=== PATIENT | female | born 1980 | race Caucasian/White ===

== ENCOUNTER 2022-11-15 07:24 | Outpatient (CLI) | payer OTHER, SELFPAY | END 2022-11-15 07:25 | disposition home or self-care (01) | LOC: NFLDREF 11-16 06:52 | PROVIDERS: PCP Physician Assistant Medical; Visit Provider Physician Assistant Medical | DX: Z00.00 Encounter for general adult medical examination without abnormal findings (principal); Z13.0 Encounter for screening for diseases of the blood and blood-forming organs and certain disorders involving the immune mechanism; Z13.1 Encounter for screening for diabetes mellitus; Z13.6 Encounter for screening for cardiovascular disorders | CPT/HCPCS: 80053; 80061; 84443 ==

== ENCOUNTER 2024-02-06 07:04 | Outpatient (CLI) | payer OTHER, SELFPAY ==
--- NOTE | 2024-02-06 07:15 | MR_ITS ---
[facility] [address] [facility] [address] Phone:?[phone] Fax:?[phone] Referring Physician Information: Stevan Olvera M.D. [address] [facility] [address] Phone:?[phone] Fax:?[phone] Patient:Maite Nye D.O.B:?1980 Sex:?Female Phone:?[phone] [facility] MRN:?[id number] Exam Date:?02/06/2024 EXAM: MRI of the RIGHT SHOULDER, without contrast CLINICAL: Right shoulder lump. Evaluate for tumor and rotator cuff tear. COMPARISONS: X-rays dated 02/03/2024. TECHNICAL: Multiplanar multisequence MRI of the right shoulder was obtained. SEDATION: None. CONTRAST: None. FINDINGS: Rotator cuff: Supraspinatus/Infraspinatus: There is mild tendinosis of the distal supraspinatus and infraspinatus tendons with mild partial interstitial/bursal surface tearing of the distal supraspinatus tendon on coronal series 4 image 15. There is mild thin linear partial interstitial insertional tearing of the distal infraspinatus tendon. No significant fatty atrophy of the muscle bellies. Teres minor: No tendinosis, tear or atrophy. Subscapularis: No tendinosis, tear or atrophy. Bursae: Subacromial-subdeltoid: Minimal bursal edema. Subcoracoid: No significant bursal fluid. Coracoacromial arch: Acromion morphology: Type II. No os acromiale. Acromiohumeral space: Within normal limits. Coracohumeral space: Within normal limits. Biceps tendon, long head: There is mild tendinosis/partial interstitial tearing of the intra-articular tendon as seen on sagittal series 8 images 14-16. No significant tendon displacement. Glenohumeral joint: Physiologic volume of joint fluid. Articular cartilage: No significant chondral loss. Capsule: No convincing evidence of capsular thickening or injury. Labrum: No discrete labral tear identified on this nonarthrogram exam. No perilabral cyst identified. Bones: No suspicious marrow signal alteration, fracture or dislocation. Acromioclavicular joint: No significant arthrosis or injury. Lipoma is present within the subcutaneous soft tissues adjacent to the acromion underlying the skin marker in the region of concern measuring approximately 36 x 15 x 33 mm in size as seen on axial series 301 image 12 and sagittal series 7 image 9. IMPRESSION: 1. Mild tendinosis and mild partial tearing of the distal supraspinatus and infraspinatus tendons. 2. Mild tendinosis/partial interstitial tearing of the intra-articular long head biceps tendon. 3. Lipoma involving the subcutaneous soft tissues adjacent to the acromion measuring up to 36 mm in size. 4. No additional internal derangement identified. JCZ Electronically signed on 02/06/2024 1:04:00 PM by Rafa Mcclelland D.O.
== END 2024-02-06 07:05 | disposition home or self-care (01) ==
LOC: MRI 07:04
PROVIDERS: PCP Physician Assistant Medical; Visit Provider Orthopaedic Surgery Sports Medicine
DX: D17.21 Benign lipomatous neoplasm of skin and subcutaneous tissue of right arm (principal); M75.101 Unspecified rotator cuff tear or rupture of right shoulder, not specified as traumatic; M75.111 Incomplete rotator cuff tear or rupture of right shoulder, not specified as traumatic
CPT/HCPCS: 73221

== ENCOUNTER 2024-03-15 08:37 | Day surgery (SDC) | payer OTHER, SELFPAY ==
[2024-03-15] VITALS (11 sets, daily range): BP systolic 110–126; BP diastolic 65–114; PULSE 60–75; RESP 16; TEMP 36.4–36.9; O2SAT 94–99; BMI 29.2
[2024-03-15] MEDS: SODIUM CHLORIDE 0.9 % (FLUSH) 10 ML SYRINGE IVF (09:00)
[2024-03-15] MEDS: LACTATED RINGERS 1000 ML 1,000 ML 100 ML IV (09:00)
[2024-03-15 09:14] LABS: Ur HCG Qualitative* Negative (Negative)
--- NOTE | 2024-03-15 09:49 | W.PM.H&PU ---
History & Physical Update History & Physical Update H&P Reviewed and patient assessed: No changes noted
[2024-03-15] MEDS: CEFAZOLIN 2 GM in 0.9 % SODIUM CHLORIDE Mini-bag 100 ML IVPB (09:59)
--- NOTE | 2024-03-15 10:18 | PM.ORPRC ---
Procedure Note Date of procedure: 03/15/24 Procedure: PREOPERATIVE DIAGNOSIS: 1. Right superior posterolateral shoulder benign mass 2. Right 3rd toe dorsal benign cyst, near DIP joint POSTOPERATIVE DIAGNOSIS: 1. Right superior posterolateral shoulder benign mass 2. Right 3rd toe dorsal benign cyst, near DIP joint PROCEDURE: 1. Right superior posterolateral shoulder benign mass open excision (35 x 25 x 10 mm) 2. Right 3rd toe dorsal benign cyst open excision SURGEON: Stevan Olvera MD. VACATION SALES ADVISOR: [CALOS Stearns] - Of note, an child care center assistant director was critical for this case to aid in patient positioning, tissue retraction, limb manipulation/positioning, and closure. ANESTHESIA: General LMA IMPLANTS: None TOURNIQUET: 15 minutes at 225 torr, calf tourniquet COMPLICATIONS: None evident INDICATIONS: The patient is a pleasant 43-year-old female who has experienced right superolateral shoulder benign growth that has increased in size recently. In addition, she has a right dorsal 2nd toe cyst that has been developing and growing in recent months. This is bothersome as it puts pressure when she wear shoes. Given the failure of nonoperative management, and how this affects daily life, surgery was recommended. DESCRIPTION OF PROCEDURE: Following a thorough discussion of risks, benefits, and alternatives consent was obtained and the operative extremity was marked. The patient was brought to the operating room and placed supine on the operating table. 1 g IV Ancef was administered within 1 hour incision preoperatively. Proper time-out was performed identifying proper patient, site, and procedure. Both operative extremities were prepped and draped in the appropriate sterile fashion using ChloraPrep. We began with the right shoulder procedure: An incision was made on the lateral aspect of the superior shoulder centered over the identified mass. Sharp incision through the skin, and blunt dissection through subcutaneous tissue allowed us to protect crossing neurologic structures. After identifying the mass and mobilizing it with Metzenbaum scissors bluntly circumferentially, the mass was readily removed without difficulty. It was superficial to the deltoid fascia. Minimal bleeding was encountered, but Bovie cautery was utilized for hemostasis. This mass was sent for permanent pathology. It measured 35 x 25 x 10 mm. Thorough irrigation normal saline was performed. Closure performed in layered fashion with 3-0 Vicryl for subcutaneous and 4-0 Monocryl for subcuticular closure. Glue and dressings were applied. We then turned our attention to the right 3rd toe: A calf tourniquet was inflated after exsanguination. A transverse incision was made overlying the 3rd toe D IP joint region centered over the cyst. The cyst was pierced sharply and a thick, clear, gelatinous fluid was expressed consistent with a ganglion cyst/mucous cyst type of structure. There was no actual cystic structure that could be sent for pathology. The margins of the cyst were debrided with a combination of 15 blade scalpel, rongeur, and curette. At this stage, the tourniquet was deflated and hemostasis achieved. Closure was performed with [4-O nylon]. Soft dressings were applied, and the patient was awoken/transferred to the recovery room in stable condition. PLAN: 1. Encourage elevation of the right foot. 2. Weightbear as tolerated right lower extremity. 3. Range of motion right shoulder as tolerated. 4. Ibuprofen, acetaminophen and/or oxycodone as needed for pain. 5. Follow up with PA visit in 12-16 days for wound check and suture removal right foot, as well as wound check right shoulder.
[2024-03-15] MEDS: NEOMYCIN/BACITRACIN/POLYMYXIN B 1 APPLIC TOPICAL (10:22)
[2024-03-15] MEDS: fentaNYL 100 MCG/2 ML inj 50 MCG IVP ×2 (10:40→10:48)
--- NOTE | 2024-03-15 10:42 | W.ANESCHARGE ---
Anesthesia Charges Start Date/Time Anesthesia Start Date: 03/15/24 Anesthesia Start Time: 09:37 Stop Date/Time Anesthesia Stop Date: 03/15/24 Anesthesia Stop Time: 10:36
--- NOTE | 2024-03-15 10:59 | W.ANESCHARGE ---
Anesthesia Charges Start Date/Time Anesthesia Start Date: 03/15/24 Anesthesia Start Time: 09:37 Stop Date/Time Anesthesia Stop Date: 03/15/24 Anesthesia Stop Time: 10:36
[2024-03-15] MEDS: OxyCODONE/APAP 5-325 TABLET PO (11:24)
== END 2024-03-15 11:44 | disposition home or self-care (01) ==
LOC: OR 08:38
PROVIDERS: Anesthesiology; PCP Physician Assistant Medical; Visit Provider Orthopaedic Surgery Sports Medicine
PROC: (CPT 23071; principal; 2024-03-15 10:00)
DX: D17.21 Benign lipomatous neoplasm of skin and subcutaneous tissue of right arm (principal); M67.471 Ganglion, right ankle and foot
CPT/HCPCS: 23071; 28092; 01610; 81025; 88304; A9270; J0690; J1100; J1630; J1885; J2250; J2405; J2704; J3010; J7120

== ENCOUNTER 2024-05-06 09:45 | Emergency (ER) | payer OTHER, SELFPAY ==
[2024-05-06] VITALS (8 sets, daily range): BP systolic 113–140; BP diastolic 76–91; PULSE 53–75; RESP 16; TEMP 37.1; O2SAT 99–100; BMI 27.4
--- NOTE | 2024-05-06 12:03 | ED_ITS ---
HPI - General Adult General Date Seen: 05/06/24 Chief complaint: Chest Pain Stated complaint: Palpitations, chest discomfort Time Seen by Provider: 05/06/24 12:03 History of Present Illness HPI narrative: 43-year-old female with a history of rheumatoid arthritis, panic attacks, anxiety, depression, endometriosis who presents to the ER today with symptoms primarily of palpitations. She has been having this off and on for the past several weeks, perhaps even intermittently for several months. She notes that her episodes have been occurring more frequently over recent weeks. She gets spells where she feels something a funny happening in her chest. Her heart will beat funny or possibly skipped beats or race. Sometimes she feels her pulse up into her neck. Sometimes it feels like something is falling in her chest. These will happen where she gets intermittent irregular heartbeats that can last up to 30 minutes per episode. They make her feel really weak. She is not really having ?chest pain?. The episodes can happen any time of the day but ten d to happen more often in the morning. They are not associated with exertion. No definite associated with position. Sometimes she gets a funny tingly feeling in her right leg when her heart is palpitating. No numbness in her left leg. No swelling in her legs. No headache. No arm numbness or weakness. No abdominal pain. No nausea or vomiting. She has no history of thyroid disorder. No leg swelling. No recent travel or immobilization. She has a family history of ?tachycardia? according to her mother. She does not know of any specific arrhythmia She has a history of anxiety and panic attacks but says these spells feel a bit different than her typical anxiety. Related Data Home Medications ?Medication ?Instructions ?Recorded ?Confirmed calcium carbonate 500 mg-vitamin 1 tab PO QDAY 10/14/22 05/06/24 D3 5 mcg (200 unit) tablet lorazepam 0.5 mg tablet 0.5 mg PO QDAY PRN 10/14/22 05/06/24 Previous Rx's ?Medication ?Instructions ?Recorded sertraline 100 mg tablet 150 mg (1.5 x 100 mg) PO DAILY 04/19/24 #135 tabs Allergies Allergy/AdvReac Type Severity Reaction Status Date / Time No Known Drug Allergies Allergy Verified 03/25/24 10:07 [facility] Medical History (Updated 05/06/24 @ 14:46 by George Donahue MD) Right carpal tunnel syndrome ?G56.01 - Carpal tunnel syndrome, right upper limb (ICD-10) De Quervain's tenosynovitis, right ?M65.4 - Radial styloid tenosynovitis [de Quervain] (ICD-10) Panic attacks ?F41.0 - Panic disorder [episodic paroxysmal anxiety] (ICD-10) Premenstrual syndrome ?N94.3 - Premenstrual tension syndrome (ICD-10) Allergic rhinitis ?J30.9 - Allergic rhinitis, unspecified (ICD-10) Rheumatoid arthritis ?M06.9 - Rheumatoid arthritis, unspecified (ICD-10) Depression ?F32.A - Depression, unspecified (ICD-10) LUIS (generalized anxiety disorder) ?F41.1 - Generalized anxiety disorder (ICD-10) Surgical History (Updated 03/25/24 @ 17:04 by Lincoln Grayson PA-C) H/O removal of cyst (03/15/24) ?Z98.890 - Other specified postprocedural states (ICD-10) H/O excision of mass (03/15/24) ?Z98.890 - Other specified postprocedural states (ICD-10) History of dilation and curettage ?Z98.890 - Other specified postprocedural states (ICD-10) History of breast augmentation ?Z98.82 - Breast implant status (ICD-10) Endometriosis ?N80.9 - Endometriosis, unspecified (ICD-10) Family History (Updated 03/10/24 @ 16:27 by Rebecca Reddy PA-C) Mother Thyroid disease A-fib Father Diabetes Myocardial infarction Brother Diabetes Paternal Grandfather Myocardial infarction Social History (Updated 02/03/24 @ 08:33 by Vicenta Tracey ~ [facility], 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 She has 2 teenage children, son and daughter. 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 Alert. Conversant. Non toxic. HENT: Head: Atraumatic. Nose: Nose normal. Mouth/Throat: Oral mucosa is clear and moist. no trismus. Pharynx normal Eyes: Conjunctivae normal. EOM normal. Pupils equal, round, and reactive to light. No scleral icterus. Neck: Normal range of motion. Neck supple. No tracheal deviation present. No JVD. No thyromegaly Cardiovascular: Normal rate, regular rhythm. No gallop. No friction rub. No murmur heard. Symmetric radial and PT artery pulses Pulmonary/Chest: Effort normal. No stridor. No respiratory distress. No wheezes. No rales. No rhonchi . No tenderness. Abdominal: Soft. No distension. No mass. No tenderness. No rebound. No guarding. Musculoskeletal: RUE: Normal range of motion. No tenderness. No deformity LUE: Normal range of motion. No tenderness. No deformity RLE: Normal range of motion. No edema. No tenderness. No deformity LLE: Normal range of motion. No edema. No tenderness. No deformity Neurological: Alert and oriented to person, place, and time. Normal strength. CN II-VII intact. No sensory deficit. GCS eye subscore is 4. GCS verbal subscore is 5. GCS motor subscore is 6. Normal coordination Skin: Skin is warm and dry. No rash noted. No pallor. Normal capillary refill. Psychiatric: Normal mood. Normal affect. Const: Vital Signs, click to edit/add: Vital Signs - 24 hr 05/06/24 09:58 05/06/24 14:00 05/06/24 14:01 Temperature 98.8 F Pulse Rate 57 L 57 L Pulse Rate [Pulse Oximeter] 75 Respiratory Rate 16 Blood Pressure 140/91 H Blood Pressure [Ri t Upper Arm] 132/80 Pulse Oximetry 100 99 99 Oxygen Delivery Me thod Room Air 05/06/24 14:02 05/06/24 14:15 Temperature Pulse Rate 55 L 53 L Pulse Rate [Pulse Oximeter] Respiratory Rate Blood Pressure 130/85 Blood Pressure [Ri ght Upper Arm] Pulse Oximetry 99 99 Oxygen Delivery Me thod Course Vital Signs Vital signs: Initial Vital Signs Temperature 98.8 F 05/06/24 09:58 Temperature Source Temporal Artery Scan 05/06/24 09:58 Pulse Rate 75 05/06/24 09:58 Pulse Strength 0+ Absent 05/06/24 09:58 Respiratory Rate 16 05/06/24 09:58 Blood Pressure 132/80 05/06/24 09:58 Blood Pressure Mean 97 05/06/24 09:58 Blood Pressure Position Sitting 05/06/24 09:58 Pulse Oximetry 100 05/06/24 09:58 Oxygen Delivery Method Room Air 05/06/24 09:58 Vital Signs Temperature 98.8 F 05/06/24 09:58 Pulse Rate 75 05/06/24 09:58 Respiratory Rate 16 05/06/24 09:58 Blood Pressure 132/80 05/06/24 09:58 Pulse Oximetry 100 05/06/24 09:58 Oxygen Delivery Method Room Air 05/06/24 09:58 Temperature 98.8 F 05/06/24 09:58 Pulse Rate 53 L 05/06/24 14:15 Respiratory Rate 16 05/06/24 09:58 Blood Pressure 130/85 05/06/24 14:02 Pulse Oximetry 99 05/06/24 14:15 Oxygen Delivery Method Room Air 05/06/24 09:58 Medical Decision Making MDM Narrative Medical decision making narrative: This patient presents for evaluation of palpitations. Initial ECG shows [] normal sinus rhythm and no dysrhythmogenic abnormality such as WPW, prolonged QT, Brugada syndrome, and no ischemia. child monitor while the patient here in the ER showed no dysrhythmia or ectopy. A broad differential diagnosis was considered including SVT, Atrial fibrillation, ventricular arrhythmia, thyroid disease, acute electrolyte abnormality, drugs/medications, caffeine intake or other stimulants, medication side effect, anemia, heart disease, PE, among others. Overall low risk for PE and is negative by PERC. The workup and exam here in ED shows not specific cause of the patient's palpitations, and no risks factors to warrant admission. Clinical judgement suggests that supportive outpatient management is indicated. recommend follow up with her PCP in the [facility] as soon as possible to arrange an outpatient Holter monitor.. Lab Data Labs: Lab Results 05/06/24 Range/Units 12:45 WBC 4.88 (4.50-11.00) K/uL RBC 4.56 (4.00-5.20) m/uL Hgb 12.2 (12.0-16.0) gm/dL Hct 36.7 (33.0-51.0) % MCV 81 (80-100) fL MCH 27 (26-34) pg MCHC 33 (32-36) gm/dL RDW Coeff of Jax 13.1 (11.5-15.5) % Plt Count 144 (140-440) K/uL Neut % (Auto) 58.2 (42.0-72.0) % Lymph % (Auto) 32.4 (20-44) % [place] % (Auto) 7.2 (0.0-11.0) % Eos % (Auto) 1.6 (0.0-7.0) % Baso % (Auto) 0.6 (0.0-3.0) % Neut # (Auto) 2.84 (1.7-7.0) K/uL Lymph # (Auto) 1.58 (0.90-2.90) K/uL [place] # (Auto) 0.40 (0.00-0.90) K/UL Eos # (Auto) 0.08 (0.00-0.50) K/uL Baso # (Auto) 0.03 (0.00-0.30) K/uL Abs Immat Gran (auto) 0.00 (0.00-0.30) K/uL Imm/Tot Granulo (auto) 0.0 % Sodium 135 (135-149) mmol/L Potassium 3.6 (3.6-5.1) mmol/L Chloride 103 (96-114) mmol/L Carbon Dioxide 21 (20-32) mmol/L Anion Gap 11 (7-15) mEq/L BUN 18 (5-24) mg/dL Creatinine 0.6 (0.5-1.5) mg/dL Estimated Creat Clear 114.34 Estimated GFR 115 ml/min Glucose 88 (60-115) mg/dL Calcium 8.7 (8.4-10.6) mg/dL Troponin I < 0.01 L (0.01-0.04) ng/mL TSH 1.830 (0.270-4.200) uIU/mL HCG, Qual Negative (Negative) Imaging Data Chest x-ray: Attestation: I have reviewed the pertinent imaging results. Radiologist's impression: Findings/Impression: Cardiovascular and mediastinum: Heart size and vasculature are normal in caliber and appearance. Mediastinum is within normal limits. Lungs and pleural spaces: Lungs are clear. No sign of infiltrate or mass. No sign of pleural effusion. No pneumothorax. Bones and soft tissues: No significant findings. ECG Data Attestation: I personally reviewed and interpreted this ECG as follows: Interpretation: Normal sinus rhythm Rate: 66 MS: 154 QRS axis: Normal axis. No pathologic Q-waves. ST segment/T wave: No ST segment elevation or depression. QTc: 40 98 No Brugada syndrome. No prolonged QT. No WPW. Discharge Plan Discharge Clinical Impression: Heart palpitations Patient Disposition: Home, Self-Care Condition: Stable Instructions: Heart Palpitations (DC) Additional Instructions: As we discussed, please follow-up with your doctor through the [facility] as soon as possible and ask your doctor to help arrange an outpatient heart monitor. If you have worsening symptoms such as worsening palpitations, palpitations that last more than half an hour, chest pain, trouble breathing, fainting spells, or any problems, please come back to the ER right away to recheck. Prescriptions: No Action lorazepam 0.5 mg tablet 0.5 mg PO QDAY PRN calcium carbonate-vitamin D3 500 mg-5 mcg (200 unit) tablet 1 tab PO QDAY sertraline 100 mg tablet 150 mg PO DAILY Qty: 135 1RF Follow Up/Referrals: Rebecca Reddy PA-C [Primary Care Provider] - Stand Alone Forms: Incident [employer] Info Instructions
--- NOTE | 2024-05-06 12:20 | CRLHL7_ITS ---
For Patients: As a result of the Century Cures Act, medical imaging exams and procedure reports are released immediately into your electronic medical record. You may view this report before your referring provider. If you have questions, please contact your health care provider. Indication: Palpitations and chest discomfort Technique: Chest 2 views Comparison: None Findings/Impression: Cardiovascular and mediastinum: Heart size and vasculature are normal in caliber and appearance. Mediastinum is within normal limits. Lungs and pleural spaces: Lungs are clear. No sign of infiltrate or mass. No sign of pleural effusion. No pneumothorax. Bones and soft tissues: No significant findings. Dictated by Toni Benjamin MD @ 05/06/2024 1:42:40 PM (Electronically Signed)
[2024-05-06 13:02] LABS: Basophils Absolute Auto 0.03 K/uL (0.00-0.30); Basophils Percent Auto 0.6 % (0.0-3.0); Eosinophils Absolute Auto 0.08 K/uL (0.00-0.50); Eosinophils Percent Auto 1.6 % (0.0-7.0); Hematocrit 36.7 % (33.0-51.0); Hemoglobin* 12.2 gm/dL (12.0-16.0); Lymphocytes Absolute Auto 1.58 K/uL (0.90-2.90); Lymphocytes Percent Auto 32.4 % (20-44); Mean Corpuscular HGB Conc 33 gm/dL (32-36); Mean Corpuscular Hemoglobin 27 pg (26-34); Mean Corpuscular Volume 81 fL (80-100); Monocytes Percent Auto 7.2 % (0.0-11.0); Neutrophils Absolute Auto 2.84 K/uL (1.7-7.0); Neutrophils Percent Auto 58.2 % (42.0-72.0); Platelet Count* 144 K/uL (140-440); RDW Coefficient of Variation % 13.1 % (11.5-15.5); Red Blood Count 4.56 m/uL (4.00-5.20); White Blood Count* 4.88 K/uL (4.50-11.00)
[2024-05-06 13:21] LABS: Chloride* 103 mmol/L (96-114); Potassium* 3.6 mmol/L (3.6-5.1); Sodium* 135 mmol/L (135-149)
[2024-05-06 13:24] LABS: Anion Gap 11 mEq/L (7-15); Carbon Dioxide* 21 mmol/L (20-32); Creatinine* 0.6 mg/dL (0.5-1.5); Est. Creatinine Clearance* 114.34; Estimated Glomerular Filt Rate 115 ml/min
[2024-05-06 13:25] LABS: Blood Urea Nitrogen* 18 mg/dL (5-24); Calcium* 8.7 mg/dL (8.4-10.6); Glucose* 88 mg/dL (60-115)
[2024-05-06 13:28] LABS: HCG Qualitative Serum* Negative (Negative)
[2024-05-06 13:44] LABS: Slide Review Reflex No
[2024-05-06 13:45] LABS: Troponin I* < 0.01 ng/mL (0.01-0.04)
== END 2024-05-06 14:57 | disposition home or self-care (01) ==
PROVIDERS: Emergency Provider Emergency Medicine; PCP Physician Assistant Medical
DX: R00.2 Palpitations (principal)
CPT/HCPCS: 36415; 71046; 80048; 84443; 84484; 84703; 85025; 99283; 99284

== ENCOUNTER 2024-07-14 14:47 | Outpatient (CLI) | payer OTHER, SELFPAY ==
--- OUTSIDE RECORDS SUMMARY | 2024-07-14 14:51 | XMS_ITS | Clinical Summary ---
Author Organization [facility] Address [place], [place] [address] Care Team Providers Care Faceter Name Role Phone None Primary Care Provider Unavailabl e Allergies No known active allergies Medications Medication Sig Dispensed Refills Start Date End Date Status sertraline (ZOLOFT) 100 mg tablet Take 150 mg by mouth once daily. 04/20/2024 Active cholecalciferol, vitamin D3, (VITAMIN D3 ORAL) Take by mouth. Act edilberto TRIPHASIL (28) ORAL TAB Take as directed on package. 3 months 1 year 10/19/2002 07/14/2024 Discontinued (*Patient states no longer taking) nitroglycerin (NITROSTAT) 0.4 mg sublingual tabletIndications: Preprocedural examination Place 2 Tablets (0.8 mg) under the tongue one time for 1 dose. 07/14/2024 07/14/2024 Discontinued (*Med complete/Reg imen complete/Lev el of care change) Active Problems Problem Noted Date Diagnosed Date RHINITIS - ALLERGIC 05/10/2003 BLEEDING, POSTCOITAL DERMATITIS NOS TOBACCO USE Encounters Date Type Department Care Team Description 07/14/2024 10:00 AM MACHINE WHITENER Ancillary Procedure [facility] [address] [facility] [address] [place] [address] Arrived 07/14/2024 9:20 AM MACHINE WHITENER Orders Only [facility] [address] [facility] [address] [place] [address] Lab 07/14/2024 Travel 07/08/2024 Orders Only [facility] [address] [place] [address] Eber Westbrook MD <No scans attached> 07/01/2024 3:00 PM MACHINE WHITENER Office Visit [facility] [address] [place] [address] Eber Westbrook MD Arrived 07/01/[address] [facility] [place] [address] Eber Westbrook MD Health Maintenance Update 06/04/2024 Orders Only [facility] [address] [place] [address] Rylee Mcbride 1 scan: (1-Ord) Zio Report from Last 3 Months Social History Tobacco Use Types Packs/Day Years Used Date Smoking Tobacco: Every Day Cigarettes Comments:Smoking History Pac ks/day: 0.5 Sex and Gender Information Value Date Recorded Sex Assigned at Not on file Gender Identity Not on file Sexual Orientation Not on file Obstetrics History Last Filed Vital Signs Vital Sign Reading Time Taken Comments Blood Pressure 123/56 07/29/2006 2:15 PM MACHINE WHITENER Pulse 60 07/29/2006 2:15 PM MACHINE WHITENER Temperature 36.3 C (97.3 F) 07/29/2006 1:00 PM MACHINE WHITENER Respiratory Rate 12 07/29/2006 2:15 PM MACHINE WHITENER Oxygen Saturation 100% 07/29/2006 2:15 PM MACHINE WHITENER Inhaled Oxygen Concentration - - Weight 59.9 kg (132 lb) 07/29/2006 10:59 AM MACHINE WHITENER Height 165.1 cm (5' 5) 07/29/2006 10:59 AM MACHINE WHITENER Body Mass Index 21.97 07/29/2006 10:59 AM MACHINE WHITENER Plan of Treatment Upcoming Encounters Date Type Department Care Team (Late st Contact Info) Description 07/14/2024 3:00 PM MACHINE WHITENER Ancillary Procedure [facility] [address] [place] [address] Health Maintenance Due Date Last Done Comments Tdap 1992 Depression screening for age 12+ 1993 HIV for age 15-65 1996 BMI (ht and wt on same day) for age 18+ 1999 Hepatitis C screening for age 18-79 1999 Tetanus booster 2001 COVID-19 vaccine series ( season) 2024 09/29/2020, 09/08/2020 Influenza for age 9-49 04/25/2024 Pap test for age 21-65 10/14/2025 , 10/14/2022, 10/19/2002, Additional history exists Pneumococcal series for age 6-64 Aged Out No longer eligible based on patient's age to complete this topic Procedures Procedure Name Priority Date/Time Associated Diagnosis Comments CT CARDIAC CORONARY ARTERIES DUAL READ Routine 07/14/2024 10:26 AM MACHINE WHITENER Atypical chest pain Procedure Note - Mickey Mayorga MD - 07/14/2024 10:26 AM CSTThis note is in progress. [facility] Cardiac CT Report Name: DELORIS LEIGH : Scan Date: Accession Number: [id number] Status: Final Electronically signed by Mickey Mayorga 11:03:47 VITALS HEIGHT: 65 in (165 cm) WEIGHT: 132 lbs (60 kgs) BSA: 1.66 m^2 BMI: 22 kg/m^2 BP: 123 / 56 mmHg HEART RHYTHM: Normal Sinus Rhythm FINAL IMPRESSION [place] Coronaries: 1. Normal epicardial coronary arteries without atherosclerosis. 2. Normal size thoracic aorta. STUDY QUALITY: Study quality is good. CAD-RADS: CAD-RADS Classification 0 (0% stenosis). DOMINANCE: Left dominant coronary artery system. LM: The LM is normal. LAD: The LAD is normal. D1: The first diagonal is normal. LCX: The LCx is normal. OM1: The first obtuse marginal is normal. LEFT PDA: The left PDA is normal. LEFT PLB: The left posterolateral branch is normal. RCA: The RCA is normal. OTHER FINDINGS: Aortic sinus maximum cusp-commissure: 31 x 31 x 29 mm. Ascending aorta maximum diameters: 29 x 29 mm. Descending thoracic aorta maximum diameters: 23 x 23 mm. Pericardium: No effusion. Left atrium: Normal contrast opacification. Atrial septum: No evidence of shunt. Pulmonary veins: Normal anatomy. SCAN INFO TEST TYPE: Coronary CT Angiography SCANNER SUPERVISOR POWER REACTOR: SIEMENS SCANNER MODEL: Metail DOSE REDUCTION ALGORITHM: Prospective/[id number] PHASE UNITS: % START PHASE: 65 % END PHASE: 75 % EKG GATED: Yes PRE-CONTRAST: No POST-CONTRAST: Yes 3D RECONSTRUCTION: Yes PACEMAKER DEVICE: No GENERAL CONTRAST AGENT CONTRAST AGENT USED?: Yes TYPE: Omnipaque 350 DOSE: 80 ml RATE: 6.5 ml/s ROUTE: IV ARM: Left BOLUS TECHNIQUE: Biphasic ADVERSE REACTION: No CREATININE DATE: CT CONTRAST REACTION: None CONTRAST/SALINE ADMINISTRATION: Blended CONTRAST TIMING: Bolus Tracking Method MEDICATION ADMINISTERED DURING SCAN TYPE: Nitroglycerin, sublingual, B-Blockers NITROGLYCERIN, TOTAL DOSE: 0.8 mg RADIATION DOSE KV: 90 SETUP PATIENT TYPE: Outpatient REASON(S) FOR SCAN: Chest pain, Other... OTHER, SPECIFY:: family hx ascvd, anxiety, zio showed SR withrare ectopy and SVT REFERRING PHYSICIAN: EBER WESTBROOK TECHNOLOGIST: Frannie Montes Patient Account [id number] ICD10 Codes R07.89 Report generated by Pre[employer], a product of [employer] CREATININE,ISTA T Routine 07/14/2024 9:26 AM MACHINE WHITENER Atypical chest pain URINE POCT Routine 07/14/2024 9:26 AM MACHINE WHITENER Preprocedural examination EXTENDED HOLTER Routine 06/04/2024 Palpitations HPV HIGH RISK Routine 10/14/2022 5:00 PM MACHINE WHITENER from Last 3 Months or Most Recently Relevant to Health Maintenance Results * URINE POCT (07/14/2024 9:26 AM MACHINE WHITENER) POC HCG URINE NEGATIVE NEGATIVE [facility] Special[facility] (Urgent Care) Urine URINE SPECIMEN / Unknown 07/14/2024 9:26 AM MACHINE WHITENER 07/14/2024 9:27 AM MACHINE WHITENER Eber Westbrook MD URINE Performing Organization Address City/[facility]/ZIP Co de Phone Number [facility] [address] [place] [address], [facility] Specialty (Urgent Care) [address] [place] [phone] * CREATININE,ISTAT (07/14/2024 9:26 AM MACHINE WHITENER) POCT,CREATININE , ISTAT 0.8 0.6 - 1.3 mg/dL [facility] Specialty (Urgent Care) Blood BLOOD SPECIMEN / Unknown 07/14/2024 9:26 AM MACHINE WHITENER 07/14/2024 9:27 AM MACHINE WHITENER Eber Westbrook MD CHEMISTRY Performing Organization Address City/[facility]/ZIP Co de Phone Number [facility] [address] [place], [place] [address] Specialty (Urgent Care) [address] [place] [address] * EXTENDED HOLTER (06/04/2024) Rebecca Reddy PA-C CARDIAC SERVICES ORD * HPV HIGH RISK (10/14/2022 5:00 PM MACHINE WHITENER) TYPE 16 Negative Negative 10/18/2022 11:14 AM MACHINE WHITENER [facility] TRAL LABORATORY TYPE 18 Negative Negative 10/18/2022 11:14 AM MACHINE WHITENER [facility] TRAL LABORATORY OTHER HIGH RISK TYPES Negative Negative 10/18/2022 11:14 AM MACHINE WHITENER [facility] Other (Cervical/Vagina l) 10/14/2022 5:00 PM MACHINE WHITENER 10/16/2022 9:20 AM MACHINE WHITENER Narrative [facility] - 10/18/2022 11:14 AM MACHINE WHITENER HPV types 16, 18, 31, 33, 35, 39, 45, 51, 52, 56, 58, 59, 66 and 68 DNA were undetectable or below the pre-set threshold. Methodology: Joan Sid 4800 HPV Test Rebecca Reddy PA-C MICROBIOLOGY [facility] [address] [place] [address], from Last 3 Months or Most Recently Relevant to Health Maintenance Care Teams Faceter Relationship Specialty Start Date End Date None . PCP - General 07/28/06
== END 2024-07-14 14:48 | disposition home or self-care (01) ==
LOC: RAD 14:48
PROVIDERS: PCP Physician Assistant Medical; Visit Provider Internal Medicine
DX: R07.89 Other chest pain (principal); R00.2 Palpitations
CPT/HCPCS: 93306

== ENCOUNTER 2024-07-20 13:11 | Outpatient (CLI) | payer OTHER, SELFPAY ==
--- OUTSIDE RECORDS SUMMARY | 2024-07-20 13:13 | XMS_ITS | Clinical Summary ---
Author Organization [employer] [facility] Address [place], [place] [address] Care Team Providers Care Independent Crop Consultant Name Role Phone None Primary Care Provider [...] Encounters Date Type Department Care Team Description [facility] [address] [place] [address] MEGHA Russell [address] Eber Westbrook MD Results 2024 Telephone [facility] Gabriella Sam [address] [place] [address] MEGHA Russell [address] Eber Westbrook MD Results 07/14/2024 3:00 PM HEALTH AND WELLNESS COORDINATOR Ancillary Procedure [facility] [address] [place] [address] 07/14/2024 10:00 AM HEALTH AND WELLNESS COORDINATOR Ancillary Procedure [facility] [address] [place] [address] 07/14/2024 9:20 AM HEALTH AND WELLNESS COORDINATOR Orders Only [facility] [address] [place] [address] Lab 07/14/2024 Travel 07/08/2024 Orders Only [facility] [address] [place] [address] Eber Westbrook MD <No scans attached> 07/01/2024 3:00 PM HEALTH AND WELLNESS COORDINATOR Office Visit [facility] [address] [place] [address] Eber Westbrook MD 07/01/2024 Telephone [facility] [address] [facility] [address] [place] [address] Eber Westbrook MD Health Maintenance Update 06/04/2024 Orders Only [facility] [address] [place] [address] Rylee Mcbride 1 scan: (1-Ord) Zio Report [...] Comments Blood Pressure 123/56 07/29/2006 2:15 PM HEALTH AND WELLNESS COORDINATOR Pulse 60 07/29/2006 2:15 PM HEALTH AND WELLNESS COORDINATOR Temperature 36.3 C (97.3 F) 07/29/2006 1:00 PM HEALTH AND WELLNESS COORDINATOR Respiratory Rate 12 07/29/2006 2:15 PM HEALTH AND WELLNESS COORDINATOR Oxygen Saturation 100% 07/29/2006 2:15 PM HEALTH AND WELLNESS COORDINATOR Inhaled Oxygen Concentration - - Weight 59.9 kg (132 lb) 07/29/2006 10:59 AM HEALTH AND WELLNESS COORDINATOR Height 165.1 cm (5' 5) 07/29/2006 10:59 AM HEALTH AND WELLNESS COORDINATOR Body Mass Index 21.97 07/29/2006 10:59 AM HEALTH AND WELLNESS COORDINATOR Plan of Treatment Health Maintenance Due Date Last Done Comments [...] Procedure Name Priority Date/Time Associated Diagnosis Comments ECHO TTE COMPLETE WO CONTRAST Routine 07/14/2024 3:34 PM HEALTH AND WELLNESS COORDINATOR Atypical chest pain CT CARDIAC CORONARY ARTERIES DUAL READ Routine 07/14/2024 10:26 AM HEALTH AND WELLNESS COORDINATOR Atypical chest pain CREATININE,ISTAT Routine 07/14/2024 9:26 AM HEALTH AND WELLNESS COORDINATOR Atypical chest pain URINE POCT Routine 07/14/2024 9:26 AM HEALTH AND WELLNESS COORDINATOR Preprocedural examination EXTENDED HOLTER Routine 06/04/2024 Palpitations HPV HIGH RISK Routine 10/14/2022 5:00 PM HEALTH AND WELLNESS COORDINATOR from Last 3 Months or Most Recently Relevant to Health Maintenance Results * ECHO TTE COMPLETE WO CONTRAST (07/14/2024 3:34 PM HEALTH AND WELLNESS COORDINATOR) AORTIC VALVE MEAN PG 4 mmHg EJECTION FRACTION 62 % LVEDD 4.4 cm EJECTION FRACTION 60 - 65% Anatomical Region Laterality Modality Ultrasound 07/14/2024 3:01 PM HEALTH AND WELLNESS COORDINATOR Narrative 07/14/2024 3:56 PM HEALTH AND WELLNESS COORDINATOR ECHOCARDIOGRAM DELORIS LEIGH : 1980 43 years Study Date: 07/14/2024 3:01:11 PM Gender: F BP: 134/85 mmHg Height: 0.00 cm BSA: 0.00 m Weight: 0.00 kg Tech: ANNA Referring MD: EBER WESTBROOK Site: [facility] Reading Location: Mobile OP Patient Location: Outpatient. Procedure: 2D, Color Doppler and Spectral Doppler. Indication for study: Chest pain Cardiac Rhythm: Sinus bradycardia.Study quality: Good. Final Impressions: 1. Normal LV size, normal wall thickness, normal global systolic function with an estimated EF of 60 - 65%. 2. Right ventricular cavity size is normal, global systolic RV function is normal. 3. Normal diastolic function. 4. Color Doppler suggests a possible PFO. 5. No significant valve disease detected. Chamber Sizes and Function Normal left ventricular size, normal wall thickness, normal global systolic function with an estimated EF of 60 - 65%. No resting regional wall motion abnormality visualized. Left atrial size is normal. Right ventricular cavity size is normal, global systolic RV function is normal. The right atrium is normal. Right atrial area is 14 cm . The pulmonary artery is of normal size and origin. The sinus of Valsalva is normal sized. The ascending aorta is normal sized. Valves, RV Pressures and Diastolic Function The aortic valve is trileaflet, no stenosis and no regurgitation. The mitral valve is normal in structure, trace mitral regurgitation. Normal diastolic function. The tricuspid valve is normal in structure. Tricuspid regurgitation is trace regurgitation. The pulmonic valve is normal. Trace pulmonary regurgitation. TTE images do not appear adequate for transcather intervention with patient supine. Masses, Effusion, Shunts There is no pericardial effusion. The inferior vena cava is normal sized, respiratory size variation greater than 50%. Color flow Doppler imaging suggests a possible PFO. MEASUREMENTS AND CALCULATIONS 2-D Measurements and LV Function: LVID (d) 4.4 cm LV FS% (2D) 36 % LVID (s) 2.8 cm LVOT diameter 2.0 cm IVS (d) 1.0 cm HR 54 bpm LVPW (d) 1.0 cm RA area 14 cm Ao Sinus 3.0 cm RV Max 4C (d) 3.5 cm Asc Ao 3.3 cm Diastology: Mitral Tissue Doppler E Peak 1.0 m/s e', Septum 0.11 m/s A Peak 0.6 m/s e', Lateral 0.15 m/s E/A 1.7 E/e' Average 7.66 DT 193 msec Aortic Valve: Vmax 1.5 m/s PEPE (V) 1.56 cm VTI 0.38 m PEPE (I) 1.70 cm LVOT V max 0.7 m/s Max PG 9 mmHg LVOT VTI 0.20 m Mean PG 4 mmHg SV 65 ml Dim Index 0.52 CO 3.5 l/min Mitral Valve: MVA 3.9 cm MV P 1/2 56 msec Tricuspid Valve and estimated PA pressures: TAPSE 2.7 cm . This study was interpreted by an [facility] accredited facility. CC: Med/Surg - IP [facility]. Final Procedure Note Osmany Woodard MD - 07/14/2024 ECHOCARDIOGRAM DELORIS LEIGH : 1980 43 years Study Date: 07/14/2024 3:01:11 PM Gender: F BP: 134/85 mmHg Height: 0.00 cm BSA: 0.00 m Weight: 0.00 kg Tech: [facility] Referring MD: EBER WESTBROOK Site: [facility] Reading Location: Mobile OP Patient Location: Outpatient. Procedure: 2D, Color Doppler and Spectral Doppler. Indication for study: Chest pain Cardiac Rhythm: Sinus bradycardia.Study quality: Good. Final Impressions: 1. Normal LV size, normal wall thickness, normal global systolic functionwith an estimated EF of 60 - 65%. 2. Right ventricular cavity size is normal, global systolic RV functionis normal. 3. Normal diastolic function. 4. Color Doppler suggests a possible PFO. 5. No significant valve disease detected. Chamber Sizes and Function Normal left ventricular size, normal wall thickness, normal globalsystolic function with an estimated EF of 60 - 65%. No resting regionalwall motion abnormality visualized. Left atrial size is normal. Rightventricular cavity size is normal, global systolic RV function is normal.The right atrium is normal. Right atrial area is 14 cm . The pulmonaryartery is of normal size and origin. The sinus of Valsalva is normalsized. The ascending aorta is normal sized. Valves, RV Pressures and Diastolic Function The aortic valve is trileaflet, no stenosis and no regurgitation. Themitral valve is normal in structure, trace mitral regurgitation. Normaldiastolic function. The tricuspid valve is normal in structure. Tricuspidregurgitation is trace regurgitation. The pulmonic valve is normal. Tracepulmonary regurgitation. TTE images do not appear adequate for transcatherintervention with patient supine. Masses, Effusion, Shunts There is no pericardial effusion. The inferior vena cava is normal sized,respiratory size variation greater than 50%. Color flow Doppler imagingsuggests a possible PFO. MEASUREMENTS AND CALCULATIONS 2-D Measurements and LV Function: LVID (d) 4.4 cm LV FS% (2D) 36 % LVID (s) 2.8 cm LVOT diameter 2.0 cm IVS (d) 1.0 cm HR 54 bpm LVPW (d) 1.0 cm RA area 14 cm Ao Sinus 3.0 cm RV Max 4C (d) 3.5 cm Asc Ao 3.3 cm Diastology: Mitral Tissue Doppler E Peak 1.0 m/s e', Septum 0.11 m/s A Peak 0.6 m/s e', Lateral 0.15 m/s E/A 1.7 E/e' Average 7.66 DT 193 msec Aortic Valve: Vmax 1.5 m/s PEPE (V) 1.56 cm VTI 0.38 m PEPE (I) 1.70 cm LVOT V max 0.7 m/s Max PG 9 mmHg LVOT VTI 0.20 m Mean PG 4 mmHg SV 65 ml Dim Index 0.52 CO 3.5 l/min Mitral Valve: MVA 3.9 cm MV P 1/2 56 msec Tricuspid Valve and estimated PA pressures: TAPSE 2.7 cm . This study was interpreted by an [facility] accredited facility. CC: Med/Surg - IP [facility]. Final Eber Westbrook MD ECHO ORD * CT CARDIAC CORONARY ARTERIES DUAL READ (07/14/2024 10:26 AM HEALTH AND WELLNESS COORDINATOR) Anatomical Region Laterality Modality HEART Computed Tomogra phy 07/14/2024 10:0 6 AM HEALTH AND WELLNESS COORDINATOR Impressions 07/16/2024 8:03 AM HEALTH AND WELLNESS COORDINATOR 1. No acute nonvascular findings in the visualized chest. 2. Please refer to separately dictated report for evaluation of cardiovascular structures. Please note that all CT scans at this facility use dose modulation, iterative reconstruction, and/or weight-based dosing when appropriate to reduce radiation dose to as low as reasonably achievable. Dictated by Hiram Burroughs MD @ 07/14/2024 6:02:48 PM Narrative 07/16/2024 8:03 AM HEALTH AND WELLNESS COORDINATOR [facility] Cardiac CT Report Name: DELORIS LEIGH : Scan Date: Accession Number: [id number] Status: Final Electronically signed by Mickey Mayorga 11:03:47 VITALS HEIGHT: 65 in (165 cm) WEIGHT: 132 lbs (60 kgs) BSA: 1.66 m^2 BMI: 22 kg/m^2 BP: 123 / 56 mmHg HEART RHYTHM: Normal Sinus Rhythm FINAL IMPRESSION 1. Normal epicardial coronary arteries without atherosclerosis. [...] INFO TEST TYPE: Coronary CT Angiography SCANNER NEUROSURGEON: SIEMENS SCANNER MODEL: [employer] DOSE REDUCTION ALGORITHM: Prospective/[id number] PHASE UNITS: % START PHASE: 65 % [...] family hx ascvd, anxiety, zio showed SR with rare ectopy and SVT REFERRING PHYSICIAN: EBER WESTBROOK TECHNOLOGIST: Frannie Montes Patient Account [id number] ICD10 Codes R07.89 Report generated by [employer], a product of [employer] For Patients: As a result of the Century Cures Act, medical imaging exams and procedure reports are released immediately into your electronic medical record. You may view this report before your referring provider. If you have questions, please contact your health care provider. OVER-READ OVER-READ OVER-READ OVER-READ: DETAILED RADIOLOGY EXTRACARDIAC OVER-READ OF CARDIAC CT 05/31/2024 TECHNIQUE: Please see cardiology report for technical information. 84 cc Omnipaque 350. This exam is being performed in conjunction with the services provided by the [facility] ([facility]). CLINICAL HISTORY: Atypical chest pain cardiac over-read. FINDINGS: Visualized Chest: Bibasilar dependent atelectatic changes. No focal airspace opacities or pleural effusions. No significant mediastinal lymphadenopathy. No acute findings in the visualized upper abdomen. Degenerative changes in the spine. Eber Westbrook MD CT * URINE POCT (07/14/2024 9:26 AM HEALTH AND WELLNESS COORDINATOR) Pathologist [facility] POC HCG URINE NEGATIVE NEGATIVE [facility] Specialty (Urgent Care) Urine URINE SPECIMEN / Unknown 07/14/2024 9:26 AM HEALTH AND WELLNESS COORDINATOR 07/14/2024 9:27 AM HEALTH AND WELLNESS COORDINATOR Eber Westbrook MD URINE [facility] [address] [place] [address], [facility] Specialty (Urgent Care) [address] [place] [address] * CREATININE,ISTAT (07/14/2024 9:26 AM HEALTH AND WELLNESS COORDINATOR) [facility] POCT,CREATININE , ISTAT 0.8 0.6 - 1.3 mg/dL [facility] Specialty (Urgent Care) Blood BLOOD SPECIMEN / Unknown 07/14/2024 9:26 AM HEALTH AND WELLNESS COORDINATOR 07/14/2024 9:27 AM HEALTH AND WELLNESS COORDINATOR Eber Westbrook MD CHEMISTRY [facility] [address] [place] [address], [facility] Specialty (Urgent Care) [address] [place] [address] * EXTENDED HOLTER (06/04/2024) Rebecca Reddy PA-C CARDIAC SERVICES ORD * HPV HIGH RISK (10/14/2022 5:00 PM HEALTH AND WELLNESS COORDINATOR) TYPE 16 Negative Negative 10/18/2022 11:14 AM HEALTH AND WELLNESS COORDINATOR [facility] TR[facility]AT[facility] TYPE 18 Negative Negative 10/18/2022 11:14 AM HEALTH AND WELLNESS COORDINATOR [facility] OTHER HIGH RISK TYPES Negative Negative 10/18/2022 11:14 AM HEALTH AND WELLNESS COORDINATOR [facility] Other (Cervical/Vagina l) 10/14/2022 5:00 PM HEALTH AND WELLNESS COORDINATOR 10/16/2022 9:20 AM HEALTH AND WELLNESS COORDINATOR Narrative [facility] - 10/18/2022 11:14 AM HEALTH AND WELLNESS COORDINATOR HPV types 16, 18, 31, 33, 35, 39, 45, 51, 52, 56, 58, 59, 66 and 68 DNA were undetectable or below the pre-set threshold. Methodology: Joan Sid 4800 HPV Test Rebecca Reddy PA-C MICROBIOLOGY Performing Organization Address City/[facility]/ZIP Co de Phone Number [facility] [address] [place] [address], from Last 3 Months or Most Recently Relevant to Health Maintenance Care Teams Independent Crop Consultant Relationship Specialty Start Date End Date None . PCP - General 07/28/06
--- NOTE | 2024-07-20 13:20 | CRLHL7_ITS ---
For Patients: As a result of the Century Cures Act, medical imaging exams and procedure reports are released immediately into your electronic medical record. You may view this report before your referring provider. If you have questions, please contact your health care provider. BILATERAL SCREENING MAMMOGRAM WITH COMPUTER-AIDED DETECTION AND TOMOSYNTHESIS TECHNIQUE: CC, MLO and Implant displaced views were obtained. These mammographic images have been obtained using full-field digital technique. These mammographic images were interpreted with the benefit of computer-aided detection. Breast Tomosynthesis was used in this interpretation. COMPARISON FILM: 01/02/23. FINDINGS: The breasts are heterogeneously dense, which may obscure small masses. IMPRESSION: There is no radiographic evidence for malignancy. ASSESSMENT: BI-RADS Category 1: Negative RECOMMENDATION: Routine screening mammogram in 1 year. A lay language report of this examination will be provided to the patient. Girish Carr M.D. Diagnostic Radiologist [employer] [facility] [email or web address] SP/Dictated by: Girish Carr MD @ 07/21/2024 8:57:00 AM (Electronically Signed)
== END 2024-07-20 13:12 | disposition home or self-care (01) ==
LOC: MAMMO 13:12
PROVIDERS: PCP Physician Assistant Medical; Visit Provider Physician Assistant Medical
DX: Z12.31 Encounter for screening mammogram for malignant neoplasm of breast (principal); R92.333 Mammographic heterogeneous density, bilateral breasts; Z98.82 Breast implant status
CPT/HCPCS: 77063; 77067

== ENCOUNTER 2024-07-28 11:43 | Day surgery (SDC) | payer OTHER, SELFPAY ==
[2024-07-28] VITALS (11 sets, daily range): BP systolic 124–149; BP diastolic 76–90; PULSE 52–68; RESP 16; TEMP 36.5–36.8; O2SAT 95–100; BMI 28.3
--- OUTSIDE RECORDS SUMMARY | 2024-07-28 11:47 | XMS_ITS | Clinical Summary ---
Author Organization [email or web address] [facility] Address [place], [place] [address] Care Team Providers Care Group Activities Aide Name Role Phone Rebecca Reddy PA-C Primary Care Provider Allergies No known active allergies Medications Medication [...] Type Department Care Team Description 07/16/2024 Telephone [facility] [address] [place] [address] MEGHA Russell [id number] Eber Westbrook MD Results 2024 Telephone [facility] [address] [place] [address] MEGHA Russell [address] Eber Westbrook MD Results 07/14/2024 3:00 PM REGISTERED ART THERAPIST Ancillary Procedure [facility] [address] [place] [address] 07/14/2024 10:00 AM REGISTERED ART THERAPIST Ancillary Procedure [facility] [address] [place] [address] 07/14/2024 9:20 AM REGISTERED ART THERAPIST Orders Only [facility] [address] [place] [address] Lab 07/14/2024 Travel 07/08/2024 Orders Only [facility] [address] [place] [address] Eber Westbrook MD <No scans attached> 07/01/2024 3:00 PM REGISTERED ART THERAPIST Office Visit [facility] [address] [place] [address] Eber Westbrook MD 07/01/[address] [place] [address] Eber Westbrook MD Health Maintenance Update 06/04/[address] [facility] [address] [place] [address] Rylee Mcbride 1 scan: (1-Ord) Zio Report [...] Comments Blood Pressure 123/56 07/29/2006 2:15 PM REGISTERED ART THERAPIST Pulse 60 07/29/2006 2:15 PM REGISTERED ART THERAPIST Temperature 36.3 C (97.3 F) 07/29/2006 1:00 PM REGISTERED ART THERAPIST Respiratory Rate 12 07/29/2006 2:15 PM REGISTERED ART THERAPIST Oxygen Saturation 100% 07/29/2006 2:15 PM REGISTERED ART THERAPIST Inhaled Oxygen Concentration - - Weight 59.9 kg (132 lb) 07/29/2006 10:59 AM REGISTERED ART THERAPIST Height 165.1 cm (5' 5) 07/29/2006 10:59 AM REGISTERED ART THERAPIST Body Mass Index 21.97 07/29/2006 10:59 AM REGISTERED ART THERAPIST Plan of Treatment Health Maintenance Due Date Last Done Comments Tdap 1992 Depression screening for age 12+ 1993 HIV for age 15-65 1996 BMI (ht and wt on same day) for age 18+ 1999 Hepatitis C screening for age 18-79 1999 Tetanus booster 2001 COVID-19 vaccine series (2023- season) 2024 09/29/2020, 09/08/2020 Influenza for age 9-49 04/25/2024 Pap test for age 21-65 10/14/2025 , 10/14/2022, 10/19/2002, Additional history exists Pneumococcal series for age 6-64 Aged Out No longer eligible based on patient's age to complete this topic Procedures Procedure Name Priority Date/Time Associated Diagnosis Comments ECHO TTE COMPLETE WO CONTRAST Routine 07/14/2024 3:34 PM REGISTERED ART THERAPIST Atypical chest pain CT CARDIAC CORONARY ARTERIES DUAL READ Routine 07/14/2024 10:26 AM REGISTERED ART THERAPIST Atypical chest pain CREATININE,ISTAT Routine 07/14/2024 9:26 AM REGISTERED ART THERAPIST Atypical chest pain URINE POCT Routine 07/14/2024 9:26 AM REGISTERED ART THERAPIST Preprocedural examination EXTENDED HOLTER Routine 06/04/2024 Palpitations HPV HIGH RISK Routine 10/14/2022 5:00 PM REGISTERED ART THERAPIST from Last 3 Months or Most Recently Relevant to Health Maintenance Results * ECHO TTE COMPLETE WO CONTRAST (07/14/2024 3:34 PM REGISTERED ART THERAPIST) AORTIC VALVE MEAN PG 4 mmHg EJECTION FRACTION 62 % LVEDD 4.4 cm EJECTION FRACTION 60 - 65% Anatomical Region Laterality Modality Ultrasound 07/14/2024 3:01 PM REGISTERED ART THERAPIST Narrative 07/14/2024 3:56 PM REGISTERED ART THERAPIST ECHOCARDIOGRAM DELORIS LEIGH : 1980 43 years Study Date: 07/14/2024 3:01:11 PM Gender: F BP: 134/85 mmHg Height: 0.00 cm BSA: 0.00 m Weight: 0.00 kg Tech: ANNA Referring MD: EBER WESTBROOK Site: [facility] Reading Location: Mobile OP [...] . This study was interpreted by an [facility] accredited facility. CC: Med/Surg - IP [facility]. Final Procedure Note Osmany Woodard MD - 07/14/2024 ECHOCARDIOGRAM DELORIS LEIGH : 1980 43 years Study Date: 07/14/2024 3:01:11 PM Gender: F BP: 134/85 mmHg Height: 0.00 cm BSA: 0.00 m Weight: 0.00 kg Tech: ANNA Referring MD: EBER WESTBROOK Site: [facility] Reading Location: Mobile OP [...] [facility] accredited facility. CC: Med/Surg - IP [facility]. Final Eber Westbrook MD ECHO ORD * CT CARDIAC CORONARY ARTERIES DUAL READ (07/14/2024 10:26 AM REGISTERED ART THERAPIST) Anatomical Region Laterality Modality HEART Computed Tomogra phy 07/14/2024 10:0 6 AM REGISTERED ART THERAPIST Impressions 07/16/2024 8:03 AM REGISTERED ART THERAPIST 1. No acute nonvascular findings in the visualized chest. 2. Please refer to separately dictated report for evaluation of cardiovascular structures. Please note that all CT scans at this facility use dose modulation, iterative reconstruction, and/or weight-based dosing when appropriate to reduce radiation dose to as low as reasonably achievable. Dictated by Hiram Burroughs MD @ 07/14/2024 6:02:48 PM Narrative 07/16/2024 8:03 AM REGISTERED ART THERAPIST [facility] Cardiac CT Report Name: DELORIS LEIGH Iván : Scan Date: Accession Number: [id number] Status: Final Electronically signed by Mickey Mayorga [...] INFO TEST TYPE: Coronary CT Angiography SCANNER MEAT PRESS OPERATOR: [employer]EM[employer] SCANNER MODEL: [employer] DOSE REDUCTION ALGORITHM: Prospective/Proj-rmv-lxaja PHASE UNITS: % START PHASE: 65 % [...] EBER WESTBROOK TECHNOLOGIST: Frannie Montes Patient Account [id number] ICD10 Codes R07.89 Report generated by [employer], [...] conjunction with the services provided by the [facility] [place] ([facility]). CLINICAL HISTORY: Atypical chest pain cardiac over-read. FINDINGS: Visualized Chest: Bibasilar dependent atelectatic changes. No focal airspace opacities or pleural effusions. No significant mediastinal lymphadenopathy. No acute findings in the visualized upper abdomen. Degenerative changes in the spine. Eber Westbrook MD CT * URINE POCT (07/14/2024 9:26 AM REGISTERED ART THERAPIST) Pathologist [facility] POC HCG URINE NEGATIVE NEGATIVE [facility] (Urgent Care) Urine URINE SPECIMEN / Unknown 07/14/2024 9:26 AM REGISTERED ART THERAPIST 07/14/2024 9:27 AM REGISTERED ART THERAPIST Eber Westbrook MD URINE [facility] [address] [place] [address], [facility] (Urgent Care) [address] [place] [address] * CREATININE,ISTAT (07/14/2024 9:26 AM REGISTERED ART THERAPIST) POCT,CREATININE , ISTAT 0.8 0.6 - 1.3 mg/dL [facility] (Urgent Care) Blood BLOOD SPECIMEN / Unknown 07/14/2024 9:26 AM REGISTERED ART THERAPIST 07/14/2024 9:27 AM REGISTERED ART THERAPIST Eber Westbrook MD CHEMISTRY [facility] [address] [place] [address], [facility] (Urgent Care) [address] [place] [address] * EXTENDED HOLTER (06/04/2024) Rebecca Reddy PA-C CARDIAC SERVICES ORD * HPV HIGH RISK (10/14/2022 5:00 PM REGISTERED ART THERAPIST) TYPE 16 Negative Negative 10/18/2022 11:14 AM REGISTERED ART THERAPIST [facility] TYPE 18 Negative Negative 10/18/2022 11:14 AM REGISTERED ART THERAPIST [facility] OTHER HIGH RISK TYPES Negative Negative 10/18/2022 11:14 AM REGISTERED ART THERAPIST [facility] Other (Cervical/Vagina l) 10/14/2022 5:00 PM REGISTERED ART THERAPIST 10/16/2022 9:20 AM REGISTERED ART THERAPIST Narrative [facility] - 10/18/2022 11:14 AM REGISTERED ART THERAPIST HPV types 16, 18, 31, 33, 35, 39, 45, 51, 52, 56, 58, 59, 66 and 68 DNA were undetectable or below the pre-set threshold. Methodology: Joan Sid 4800 HPV Test Rebecca Reddy PA-C MICROBIOLOGY Performing Organization Address City/[facility]/ZIP Co de Phone Number [facility] [address] [place] [address], [place] from Last 3 Months or Most Recently Relevant to Health Maintenance Care Teams Group Activities Aide Relationship Specialty Start Date End Date Rebecca Reddy PA-C [address] [place] [address] PCP - General Emergency Medicine 07/23/24
[2024-07-28] MEDS: LIDOCAINE 1% MDV INJECTION (13:15)
[2024-07-28] MEDS: BUPIVACAINE 0.5% 30 ML INJECTION (13:15)
[2024-07-28] MEDS: NEOMYCIN/BACITRACIN/POLYMYXIN B 1 APPLIC TOPICAL (14:31)
--- NOTE | 2024-07-28 15:13 | P.ORPRC_ITS ---
Procedure Note Date of procedure: 07/28/24 Procedure: PREOPERATIVE DIAGNOSIS: 1. Right 3rd toe dorsal DIP joint mucous cyst/benign cyst, recurrent POSTOPERATIVE DIAGNOSIS: 1. Right 3rd toe dorsal DIP joint mucous cyst/benign cyst, recurrent PROCEDURE: 1. Right 3rd toe dorsal DIP joint mucous cyst open excision with osteophyte resection (bone from the middle and distal phalanges) SURGEON: Stevan Olvera MD. SUPERVISOR DRYING AND WINDING: Lincoln Grayson PA-C - Of note, an expanded duty dental assistant was critical for this case to aid in patient positioning, tissue retraction, limb manipulation/positioning, and closure. ANESTHESIA: Local anesthetic (50:50 mixture of 1% lidocaine plain and 0.5% marcaine plain) IMPLANTS: None TOURNIQUET: 15 minutes of digital tourni-cot COMPLICATIONS: None evident INDICATIONS: The patient is a pleasant 44-year-old female who experienced a right 3rd toe mucous cyst formation overlying the dorsal DIP joint region. This underwent surgical resection multiple months ago. Unfortunately, this recurred. This continues to bother when she wears shoes. Given the failure of no noperative management, surgery was indicated DESCRIPTION OF PROCEDURE: Following a thorough discussion of risks, benefits, and alternatives consent was obtained and the operative extremity was marked. The patient was brought to the operating room and placed supine on the operating table. No antibiotics were administered as this was planned to be a local case only. Proper time-out was performed identifying proper patient, site, and procedure. The operative extremity was prepped and draped in the appropriate sterile fashion using ChloraPrep. The limb was exsanguinated and the tourni-cot engaged. An incision was made on the dorsum of the right 3rd toe DIP joint region. This was a Sindy type incision with the base along the medial aspect near the cyst itself. Full-thickness skin flaps were mobilized but it was found that the tissue was extremely thin overlying the cyst itself. The mucous cyst was excised with a combination of [place] blade scalpel, rongeur, and curette. Indeed with puncture and thick, clear, gelatinous fluid was expressed. The cyst was present on both the medial and lateral aspect of the joint. After excising the cyst, a [employer] elevator was utilized to mobilize the extensor tendon and also protected. A rasp was utilized on the dorsal aspect of the D IP joint to eradicating/excise osteophytes. Additionally, rongeur was utilized. Thorough irrigation normal saline was performed. Closure was performed with 4-O nylon. The tourni-cot was removed. Soft dressings were applied, and the patient was transferred to the recovery room in stable condition. PLAN: 1. Encourage elevation of the operative extremity. 2. Range of motion of the operative extremity/digits as tolerated. 3. Ibuprofen, acetaminophen and/or oxycodone as needed for pain. 4. Follow up with PA visit in 12-16 days for wound check and suture removal.
== END 2024-07-28 14:50 | disposition home or self-care (01) ==
LOC: OR 11:45
PROVIDERS: PCP Physician Assistant Medical; Visit Provider Orthopaedic Surgery Sports Medicine
PROC: (CPT 28092; principal; 2024-07-28 13:00)
DX: M71.371 Other bursal cyst, right ankle and foot (principal); M25.774 Osteophyte, right foot
CPT/HCPCS: 28092; J2003; J0665

== ENCOUNTER 2025-01-27 13:30 | Outpatient (CLI) | payer OTHER, SELFPAY | END 2025-01-27 13:31 | disposition home or self-care (01) | LOC: LKVREF 13:31 | PROVIDERS: PCP Physician Assistant Medical; Visit Provider Physician Assistant Medical | DX: Z00.00 Encounter for general adult medical examination without abnormal findings (principal); F32.A Depression, unspecified; F41.9 Anxiety disorder, unspecified; Z13.29 Encounter for screening for other suspected endocrine disorder | CPT/HCPCS: 84443 ==

== ENCOUNTER 2025-05-31 21:37 | Emergency (ER) | payer OTHER, SELFPAY ==
--- OUTSIDE RECORDS SUMMARY | 2025-05-31 21:40 | XMS_ITS | Clinical Summary ---
Author Organization [employer] [facility] Address [facility] [place] [address] Care Team Providers Care Brewery Representative Name Role Phone Rebecca Reddy PA-C Primary Care Provider [phone] Allergies No known active allergies Medications sertraline (ZOLOFT) 100 mg tablet Take 150 mg by mouth once daily. 04/20/2024 Active cholecalciferol, vitamin D3, (VITAMIN D3 ORAL) Take by mouth. Active Active Problems Problem Noted Date Diagnosed Date RHINITIS - ALLERGIC 05/10/2003 BLEEDING, POSTCOITAL DERMATITIS NOS TOBACCO USE Social History Tobacco Use Types Packs/Day Years Used Date Smoking Tobacco: Every Day Cigarettes Comments:Smoking History Pac ks/day: 0.5 Comments Unknown Sex and Gender Information Value Date Recorded Sex Assigned at Not on file Legal Sex Female 5:38 AM QUALITY ASSURANCE LEAD Gender Identity Not on file Sexual Orientation Not on file Obstetrics History Last Filed Vital Signs Vital Sign Reading Time Taken Comments Blood Pressure 123/56 07/29/2006 2:15 PM QUALITY ASSURANCE LEAD Pulse 60 07/29/2006 2:15 PM QUALITY ASSURANCE LEAD Temperature 36.3 C (97.3 F) 07/29/2006 1:00 PM QUALITY ASSURANCE LEAD Respiratory Rate 12 07/29/2006 2:15 PM QUALITY ASSURANCE LEAD Oxygen Saturation 100% 07/29/2006 2:15 PM QUALITY ASSURANCE LEAD Inhaled Oxygen Concentration - - Weight 59.9 kg (132 lb) 07/29/2006 10:59 AM QUALITY ASSURANCE LEAD Height 165.1 cm (5' 5) 07/29/2006 10:59 AM QUALITY ASSURANCE LEAD Body Mass Index 21.97 07/29/2006 10:59 AM QUALITY ASSURANCE LEAD Plan of Treatment Health Maintenance Due Date Last Done Comments Tetanus booster 1992 Depression screening for age 12+ 1993 HIV for age 15-65 1996 BMI (ht and wt on same day) for age 18+ 1999 Hepatitis C screening for age 18-79 1999 Hepatitis B series for 19+ (1 of 3 - 19+ 3-dose series) 2000 HPV series for age 9-45 (1 - 3-dose SCDM series) 2008 COVID-19 vaccine series (3 - 2024- season) 2025 09/29/2020, 09/08/2020 Influenza Vaccine (#1) 2025 Pap test for age 21-65 10/14/2025 , 10/14/2022, 10/19/2002, Additional history exists RSV vaccine for adults or (1 - 1-dose 75+ series) 2056 Pneumococcal series for age 6-49 Aged Out No longer eligible based on patient's age to complete this topic Procedures Procedure Name Priority Date/Time Associated Diagnosis Comments HPV HIGH RISK Routine 10/14/2022 5:00 PM QUALITY ASSURANCE LEAD from Last 3 Months or Most Recently Relevant to Health Maintenance Results * HPV HIGH RISK (10/14/2022 5:00 PM QUALITY ASSURANCE LEAD) TYPE 16 Negative Negative 10/18/2022 11:14 AM QUALITY ASSURANCE LEAD [facility] TYPE 18 Negative Negative 10/18/2022 11:14 AM QUALITY ASSURANCE LEAD [facility] OTHER HIGH RISK TYPES Negative Negative 10/18/2022 11:14 AM QUALITY ASSURANCE LEAD [facility] Other (Cervical/Vagina l) 10/14/2022 5:00 PM QUALITY ASSURANCE LEAD 10/16/2022 9:20 [address] QUALITY ASSURANCE LE[address] [facility] - 10/18/2022 11:14 AM QUALITY ASSURANCE LEAD HPV types 16, 18, 31, 33, 35, 39, 45, 51, 52, 56, 58, 59, 66 and 68 DNA were undetectable or below the pre-set threshold. Methodology: Joan Sid 4800 HPV Test Rebecca Reddy PA-C MICROBIOLOGY Final Result [facility] [address] [place] [address], [place] from Last 3 Months or Most Recently Relevant to Health Maintenance Insurance [facility] [place] [address] Care Teams Brewery Representative Relationship Specialty Start Date End Date Rebecca Reddy PA-C [address] [place] [address] PCP - General Emergency Medicine 07/23/24
[2025-05-31 21:46] VITALS: BP 130/69; PULSE 78; RESP 18; TEMP 36.2; O2SAT 99; BMI 29.1
--- NOTE | 2025-05-31 22:00 | ED_ITS ---
HPI - Back Pain/Injury General Time Seen by Provider: 22:00 Date Seen: 05/31/25 Chief Complaint: Back Injury/Pain Stated Complaint: R leg pain/ bad back Time Seen by Provider: 05/31/25 22:00 Source: patient and family (spouse) Mode of arrival: ambulatory History of Present Illness HPI Narrative: Deloris is a 44-year-old female who presents the emergency department for evaluation of back pain. Patient reports right thigh pain, paresthesias that initially started on Friday. Patient reports she had a weird sensation in her thigh. Patient reports that since this time she has developed right inner thigh pain which she describes as a severe constant contraction like pain along with some discomfort on her right low back. Patient denies any trauma, injury, or heavy lifting. No history of back problems. Patient states that on Friday she was alternating Tylenol and ibuprofen every 4 hours. 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 Patient was started on Celebrex, prednisone however reports no improvement of symptoms and is still having ongoing pain. Patient denies any fever, chills, chest pain, shortness of breath, abdominal pain, dysuria, hematuria, lower extremity edema, no bowel or bladder symptoms, no other complaints. Patient denies any history of blood clots, no lower e xtremity edema or calf tenderness, no prolonged immobilization, no hormonal treatment. No other complaints. Related Data Home Medications ?Medication ?Instructions ?Recorded ?Confirmed calcium 500 mg (as 1 tab PO QDAY 10/14/2205/30 carbonate)-vitamin D3 5 mcg (200 unit) tablet lorazepam 0.5 mg tablet 0.5 mg PO QDAY PRN 10/14/22 05/30/25 Previous Rx's ?Medication ?Instructions ?Recorded sertraline 100 mg tablet 150 mg (1.5 x 100 mg) PO PALMA LY 01/27/25 #135 tabs celecoxib 200 mg capsule (Celebrex) 200 mg PO QDAY #14 caps 05/30/25 methylprednisolone 4 mg tablets in See Rx Instructions PO PER PKG DIR 05/30/25 a dose pack (Medrol (Ag)) #21 ea Allergies Allergy/AdvReac Type Severity Reaction Status Date / Time No Known Drug Allergies Allergy Verified 05/30/25 11:50 Review of Systems Narrative: Past medical history, past surgical history, medications, allergies, family history, and social history were reviewed with the patient. No additional pertinent items. A medically appropriate review of systems was performed with pertinent positives and negatives noted in HPI, all other systems negative. [facility] Medical History (Updated 06/01/25 @ 00:24 by Viviane Leiva MD) Former smoker ?Z87.891 - Personal history of nicotine dependence (ICD-10) Leukocytopenia (~10/2022) ?D72.819 - Decreased white blood cell count, unspecified (ICD-10) Right carpal tunnel syndrome ?G56.01 - Carpal tunnel syndrome, right upper limb (ICD-10) De Quervain's tenosynovitis, right ?M65.4 - Radial styloid tenosynovitis [de Quervain] (ICD-10) Panic attacks ?F41.0 - Panic disorder [episodic paroxysmal anxiety] (ICD-10) Allergic rhinitis ?J30.9 - Allergic rhinitis, unspecified (ICD-10) Depression ?F32.A - Depression, unspecified (ICD-10) LUIS (generalized anxiety disorder) ?F41.1 - Generalized anxiety disorder (ICD-10) Surgical History (Updated 01/27/25 @ 13:22 by Rebecca Reddy PA-C) Hx of shoulder surgery ?Z98.890 - Other specified postprocedural states (ICD-10) H/O removal of cyst (03/15/24) ?Z98.890 - Other specified postprocedural states (ICD-10) H/O excision of mass (03/15/24) ?Z98.890 - Other specified postprocedural states (ICD-10) History of dilation and curettage ?Z98.890 - Other specified postprocedural states (ICD-10) History of breast augmentation ?Z98.82 - Breast implant status (ICD-10) Endometriosis ?N80.9 - Endometriosis, unspecified (ICD-10) Family History Mother Thyroid disease A-fib Father Diabetes Myocardial infarction Brother Diabetes Paternal Grandfather Myocardial infarction Social History (Updated 01/27/25 @ 13:41 by Rebecca Reddy PA-C) Narrative: . She has 2 teenage children, son and daughter. 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 Exercises 3-4 days per week Nonsmoker; former smoker ( quit 2006) Alcohol: Practices full abstinence Denies recreational drug use What is your current living situation?: I presently have a place to live Problems where you live: no known problems In the past 12 months, utilities in danger of being shut off: no In past 12 months, lack of transportation kept you from medical appts, meetings, work, or getting things needed for daily living: no In the past 12 mos, have been you worried that your food would run out before you had money to buy more?: never true In the past 12 mos, the food you bought just didn't last and you didn't have money to buy more?: never true Smoking Status: Former smoker What tobacco products do you use: cigarettes Smoking quit date/years: >15 years ago Do you use any of these nicotine containing products: None Second hand tobacco smoke exposure: No Non-prescribed substance use: denies use Caffeine: Yes How often does anyone, including family, friends and others, physically hurt you : never How often does anyone, including family, friends and others, insult or talk down to you: never How often does anyone, including family, friends and others, threaten you with harm: never How often does anyone, including family, friends and others, scream or curse at you: never Are you using contraception or practicing any form of control: No service: No Exam Narrative: Exam Narrative: General: Afebrile, in distress secondary to pain HEENT: Normocephalic, atraumatic, conjunctiva normal. MMM Neck: non-tender, supple Cardio: regular rate. regular rhythm Resp: Normal work of breathing, no respiratory distress, lungs clear bilaterally, no wheezing, rhonchi, rales Chest/Back: no visual signs of trauma, no midline tenderness, no CVA tenderness Abdomen: soft, non distension, no tenderness, no peritoneal signs Neuro: alert and fully oriented. CN II-XII grossly intact. Grossly normal strength and sensation in all extremities. MSK: no deformities. Normal range of motion at back, hip, knee. Some pain in right buttocks with straight leg raise beyond 90 degress. distally NVI with dp and pt pulse present b/l, compartments soft. No ankle edema or calf tenderness. Integumentary/Skin: no rash visualized, normal color Psych: normal affect, normal behavior Const: Vital Signs, click to edit/add: Vital Signs - 24 hr 05/31/25 21:46 Temperature 97.2 F L Pulse Rate [Right Pulse Oximeter] 78 Respiratory Rate 18 Blood Pressure [Ri ght Upper Arm] 130/69 Pulse Oximetry 99 Oxygen Delivery Me thod Room Air Course Vital Signs Vital signs: Initial Vital Signs Temperature 97.2 F L 05/31/25 21:46 Temperature Source Temporal Artery Scan 05/31/25 21:46 Pulse Rate 78 05/31/25 21:46 Respiratory Rate 18 05/31/25 21:46 Blood Pressure 130/69 05/31/25 21:46 Blood Pressure Mean 89 05/31/25 21:46 Blood Pressure Position Sitting 05/31/25 21:46 Pulse Oximetry 99 05/31/25 21:46 Oxygen Delivery Method Room Air 05/31/25 21:46 Vital Signs Temperature 97.2 F L 05/31/25 21:46 Pulse Rate 78 05/31/25 21:46 Respiratory Rate 18 05/31/25 21:46 Blood Pressure 130/69 05/31/25 21:46 Pulse Oximetry 99 05/31/25 21:46 Oxygen Delivery Method Room Air 05/31/25 21:46 Temperature 97.2 F L 05/31/25 21:46 Pulse Rate 78 05/31/25 21:46 Respiratory Rate 18 05/31/25 21:46 Blood Pressure 130/69 05/31/25 21:46 Pulse Oximetry 99 05/31/25 21:46 Oxygen Delivery Method Room Air 05/31/25 21:46 Medications Administered Medications: Generic Name Dose Route Start Last Admin Trade Name Freq PRN Reason Stop Dose Admin Hydromorphone HCl 0.5 mg 05/31/25 23:29 05/31/25 23:47 Hydromorphone 0.5 Mg/0.5 Ml Inj IVP 05/31/25 23:30 0.5 mg ONCE ONE Administration Ketorolac Tromethamine 15 mg 05/31/25 23:29 05/31/25 23:47 Ketorolac 15 Mg/Ml Inj IVP 05/31/25 23:30 15 mg ONCE ONE Administration Discontinued Medications Generic Name Dose Route Start Last Admin Trade Name Rosmery PRN Reason Stop Dose Admin Oxycodone HCl 5 mg 05/31/25 22:25 05/31/25 22:33 Oxycodone 5 Mg Tablet PO 05/31/25 22:26 5 mg ONCE ONE Administration MDM - Back Pain/Injury MDM Narrative Medical decision making narrative: Deloris is a 44-year-old female who presents the emergency department for evaluation of back pain. Upon arrival patient is nontoxic appearing, afebrile, in distress secondary to pain. Patient hemodynamically stable vital signs within normal limits. Patient denies any trauma or injury, no red flags. No focal neurological deficit. Per chart review patient was seen yesterday in clinic, suspected likely lumbar back pain with radiculopathy affecting the right lower extremity and patient was started on Celebrex and a Medrol Dosepak with no improvement of symptoms. Urinalysis with no evidence of acute infection, negative for blood. I discussed with patient and spouse and patient is agreeable to treatment with oral oxycodone. Patient with no improvement of symptoms after oral oxycodone so at that time discussed with patient and will place IV. Patient was treated with a dose of IV Toradol, IV Dilaudid. I discussed with patient, spouse, and considered further evaluation with imaging. Discussed x-ray low yield as patient has had no trauma and low suspicious for fracture. Considered CT and/or ultrasound however overall patient has no risk factors for DVT, is PERC negative, I discussed that CT is a good test but not the best. On re-evaluation after IV pain medication patient is feeling significantly improvement of her symptoms and after shared decision making patient would like to hold off on imaging at this time which I think is reasonable. Suspect likely symptoms secondary to low back pain with radicu lopathy. Plan for discharge with continued supportive care, continued prior medication, will discharge home with a short course of oxycodone as needed for severe pain. Encourage back exercises/physical therapy as tolerated, patient to follow-up with primary care provider Orthopedics if no improvement of symptoms and would consider possible imaging at that time with MRI outpatient. Strict return precautions discussed if severe pain, weakness, paresthesias, urinary/bowel incontinence/retention, or any worsening symptoms. Patient and spouse understand agrees the plan. Medical Records Attestation: I reviewed the patient's medical records. Lab Data Attestation: I reviewed the patient's lab results. Labs: Lab Results 05/31/25 Range/Units 22:40 Urine Color Yellow (Yellow) Urine Appearance Clear (Clear) Urine pH 5.5 (5.0-8.5) Ur Specific [place] 1.020 (1.000-1.030) Urine Protein Negative (Negative) Urine Glucose (UA) Negative (Negative) Urine Ketones Negative (Negative) Urine Blood Trace-lysed A (Negative) Urine Nitrite Negative (Negative) Urine Bilirubin Negative (Negative) Urine Urobilinogen 0.2 (0.2-1.0) Ur Leukocyte Esterase Negative (Negative) Urine RBC 0-2 (0-2) Urine WBC 0-2 (0-5) Ur Squamous Epith Cells Few (None-Few) Urine Bacteria Few A (None) Discharge Plan Discharge Clinical Impression: Low back pain, Lower extremity pain, right Patient Disposition: Home, Self-Care Condition: Stable Additional Instructions: Please follow-up with your primary care provider or Orthopedics in the next 5-7 days for further evaluation and follow-up. Please continue old medications. Please do back exercises and physical therapy as tolerated. Please take oxycodone 1 tablet every 6 hours as needed for severe pain. Please return to the emergency department if you develop severe pain, urinary or bowel incont inence, lower extremity weakness, tingling, numbness, or any worsening symptoms. It was a pleasure taking care of you today. We hope you feel better soon. Prescriptions: No Action lorazepam 0.5 mg tablet 0.5 mg PO QDAY PRN calcium carbonate-vitamin D3 500 mg-5 mcg (200 unit) tablet 1 tab PO QDAY sertraline 100 mg tablet 150 mg PO DAILY Qty: 135 3RF celecoxib [Celebrex] 200 mg capsule 200 mg PO QDAY Qty: 14 0RF methylprednisolone [Medrol (Ag)] 4 mg tablets,dose pack See Rx Instructions PO PER PKG DIR Qty: 21 0RF Rx Instructions: PO PER PKG DIR Follow Up/Referrals: Rebecca Reddy PA-C [Primary Care Provider, Family Practice] Stand Alone Forms: [employer] Info Instructions
[2025-05-31 22:54] LABS: Appearance Urine Clear (Clear)
[2025-05-31 23:35] VITALS: BP 128/79; PULSE 70; RESP 15; O2SAT 97
== END 2025-06-01 00:33 | disposition home or self-care (01) ==
PROVIDERS: Emergency Provider Emergency Medicine; PCP Physician Assistant Medical
DX: M54.50 Low back pain, unspecified (principal); M79.661 Pain in right lower leg
CPT/HCPCS: 81001; 87086; 96374; 96375; 99284; 99285; A9270; J1171; J1885

== ENCOUNTER 2025-06-03 13:20 | Outpatient (CLI) | payer OTHER, SELFPAY | END 2025-06-03 13:21 | disposition home or self-care (01) | LOC: FRMREF 13:21 | PROVIDERS: PCP Physician Assistant Medical; Visit Provider Family Medicine | DX: Z00.00 Encounter for general adult medical examination without abnormal findings (principal); Z11.4 Encounter for screening for human immunodeficiency virus [HIV] | CPT/HCPCS: 80053; 86703 ==

== ENCOUNTER 2025-06-15 14:21 | Outpatient (CLI) | payer OTHER, SELFPAY ==
--- NOTE | 2025-06-15 14:45 | CRLHL7_ITS ---
For Patients: As a result of the Century Cures Act, medical imaging exams and procedure reports are released immediately into your electronic medical record. You may view this report before your referring provider. If you have questions, please contact your health care provider. Indication: Lumbar radiculopathy Technique: Multiplanar, multisequence, MRI of the lumbar spine, obtained without contrast. Comparison: Lumbar spine x-ray 06/14/2025 Findings: Preserved lumbar lordosis. No significant spondylolisthesis. Normal vertebral body heights. No acute osseous abnormality. Normal bone marrow signal. Conus medullaris terminates at L1-2. No concerning findings in the paravertebral soft tissues. The included SI joints are unremarkable. T12-L1 through L2-L3: No neural foraminal or spinal canal stenosis. L3-L4 and L4-L5: Disc degeneration and minimal diffuse bulge. Mild facet arthropathy. No neural foraminal or spinal canal stenosis. L5-S1: Mild facet arthropathy. No neural foraminal or spinal canal stenosis. Impression: 1. Mild lower lumbar degenerative disc changes and facet arthropathy. 2. No neural foramina or spinal canal stenosis. Dictated by Britt Leyva MD @ 06/17/2025 11:05:18 AM (Electronically Signed)
== END 2025-06-15 14:22 | disposition home or self-care (01) ==
LOC: MRI 14:21
PROVIDERS: PCP Physician Assistant Medical; Visit Provider Family Medicine
DX: M54.16 Radiculopathy, lumbar region (principal); M51.369 Other intervertebral disc degeneration, lumbar region without mention of lumbar back pain or lower extremity pain
CPT/HCPCS: 72148